=== PATIENT | female | born 1975 | race Caucasian/White ===

== ENCOUNTER 2017-10-19 04:48 | Emergency (ER) | payer OTHER ==
[~2017-10-19] VITALS: Ht 154.9 cm; Wt 61.7 kg
--- NOTE | 2017-10-19 05:53 | ED GI/GU/ABDOMINAL COMPLAINT ---
History of Present Illness General Chief Complaint: Abdominal Pain/Flank Pain Stated Complaint: PT C/C ABD/ VAG PAIN WOKE FROM SLEEP TONIGHT Source: patient, family, old records Exam Limitations: no limitations Vital Signs & Intake/Output Vital Signs & Intake/Output Vital Signs Date Time Temp Pulse Resp B/P B/P Pulse O2 O2 Flow FiO2 Mean Ox Delivery Rate 10/19 0922 98.0 58 18 110/74 99 Room Air Room Air 10/19 0750 97.6 10/19 0650 97.6 70 18 116/70 100 Room Air 10/19 0500 98.3 71 18 118/85 98 Room Air Reconcile Medications No Known Home Medications Triage Note: SEE NURSES NOTES Triage Nurses Notes Reviewed? yes LMP (ages 10-50): date ([id number]) ? n Is pt currently ? No Onset: Just prior to arrival Duration: minute(s):, constant, continues in ED Timing: single episode today Quality/Severity: sharpness, severe Location: suprapubic Radiation: back Activities at Onset: sleep Prior Abdominal Problems: none Past Sexual History: Unobtainable at this time Modifying Factors: Improves With: palpation. Worsens With: urinating. Associated Symptoms: abdominal pain, dysuria HPI: Prior to admission patient awoke with severe constant sharp Low back pain especially on the right radiating to the suprapubic area associated with nausea dysuria frequency. She denies fever chills vomiting diarrhea chest pain cough shortness of breath headache rash bleeding. (Alberto Mendez MD) Allergies Coded Allergies: meperidine (Intermediate, VOMITING 10/19/17) (Raphael Medina DO) Past History Travel History Traveled to [place] past 21 day No Medical History Any Pertinent Medical History? see below for history Renal: nephrolithiasis Surgical History Surgical History: Psychosocial History What is your primary language Bulgarian Tobacco Use: Current Daily Use Daily Tobacco Use Amount/Type: =< 4 Cigarettes daily ETOH Use: occasional use Illicit Drug Use: denies illicit drug use Family History Hx Contributory? No (Alberto Mendez MD) Review of Systems Review of Systems Constitutional: Reports: no symptoms. EENTM: Reports: no symptoms. Respiratory: Reports: no symptoms. Cardiovascular: Reports: no symptoms. GI: Reports: see HPI, abdominal pain, nausea. Genitourinary: Reports: see HPI, dysuria, frequency. Musculoskeletal: Reports: no symptoms. Skin: Reports: no symptoms. Neurological/Psychological: Reports: no symptoms. Hematologic/Endocrine: Reports: no symptoms. Immunologic/Allergic: Reports: no symptoms. All Other Systems: Reviewed and Negative (Alberto Mendez MD) Physical Exam Physical Exam General Appearance: well developed/nourished, alert, awake, anxious, moderate distress, thin Head: atraumatic, normal appearance Eyes: Bilateral: normal appearance, PERRL, EOMI, normal inspection. Ears, Nose, Throat, Mouth: hearing grossly normal, moist mucous membrane Neck: normal inspection, supple, full range of motion, normal alignment, no midline tenderness Respiratory: normal breath sounds, chest non-tender, no respiratory distress, quiet respiration, lungs clear Cardiovascular: regular rate/rhythm, normal peripheral pulses, norml femoral pulses equa Peripheral Pulses: 4+ carotid (R), 4+ carotid (L) Gastrointestinal: normal bowel sounds, soft, non-tender, no organomegaly Back: normal inspection, normal range of motion, no vertebral tenderness Extremities: normal range of motion, no ligament instability Neurologic/Psych: no motor/sensory deficits, awake, alert, oriented x 3, normal gait, normal mood/affect, inclusion special educator II-XII nml as tested Skin: intact, normal color, warm/dry Core Measures ACS in differential dx? No Sepsis Present: No Sepsis Focused Exam Completed? No (Alberto Mendez MD) Progress Differential Diagnosis: biliary colic, diverticulitis, gastritis, kidney stone, UTI/pyelo Plan of Care: Orders Procedure Date/time Status Add-on Test (ER Only) 10/19 0616 Active URINALYSIS 10/19 0540 Complete LIPASE 10/19 0540 Complete HUMAN BETA HCG SCREEN 10/19 0540 Complete COMPREHENSIVE METABOLIC PANEL 10/19 0540 Complete CBC WITHOUT DIFFERENTIAL 10/19 0540 Complete Current Medications Sig/Marti Start time Last Medication Dose Stop Time Status Admin Ceftriaxone Sodium 1,000 MG ONCE ONE 10/19 0930 CAN (Rocephin) 10/19 0931 Ondansetron HCl 4 MG ONCE ONE 10/19 0645 CAN (Zofran) 10/19 0646 Laboratory Tests 10/19/17 0545: Anion Gap 11, Estimated GFR > 60, BUN/Creatinine Ratio 18.8, Glucose 98, Calcium 9.3, Total Bilirubin 0.9, AST 16, ALT 23, Alkaline Phosphatase 67, Total Protein 6.7, Albumin 4.0, Globulin 2.7, Albumin/Globulin Ratio 1.5, Lipase 112, Total Beta HCG NEGATIVE, CBC w Diff NO MAN DIFF REQ, RBC 4.04 L, MCV 97.6, MCH 33.2 H, MCHC 34.0, RDW 12.9, MPV 8.2, Gran % 75.6 H, Lymphocytes % 18.2 L, Monocytes % 4.3, Eosinophils % 1.5, Basophils % 0.4, Absolute Granulocytes 8.8 H, Absolute Lymphocytes 2.1, Absolute Monocytes 0.5, Absolute Eosinophils 0.2, Absolute Basophils 0 10/19/17 0540: Urinalysis PACKD H, Urine Color YEL, Urine Clarity TURBD H, Urine pH 6.0, Ur Specific [place] >= 1.030, Urine Protein TRACE H, Urine Ketones NEG, Urine Nitrite NEG, Urine Bilirubin NEG, Urine Urobilinogen 0.2, Ur Leukocyte Esterase NEG, Ur Microscopic SEDIMENT EXAMINED, Urine Bacteria MANY H, Urine Hemoglobin MOD H, Urine Glucose NEG Diagnostic Imaging: Viewed by Me: CT Scan. Discussed w/RAD: CT Scan. Radiology Impression: Right grade 3 hydronephrosis secondary to a 4 mm obstructive UVJ calculus. Stable left grade 2 hydronephrosis without demonstrable nephrolithiasis. Sigmoid diverticulosis without evidence of diverticulitis. Initial ED EKG: none Hand-Off Endorsed To: Raphael Medina DO Endorsed Time: 0700 Pending: consult (Urology) (Vanessa BLACKWOOD,Alberto) Comments: Dr. Medina attending addendum at 10:40 AM: I assumed care while awaiting reassessment from Dr. Perez from urology. He did evaluate the patient at bedside and discussed her options for this 4 mm stone. I controlled the patient 's pain further with liquid hydrocodone/acetaminophen since the patient cannot take pills. We gave her two dosages of this medication with good improvement. I reassessment she was feeling better and wished to be discharged for an outpatient trial. I discussed this with Dr. Perez and he agreed. We offered Flomax, but she states that she truly cannot take oral tablets and thus she declined. Discharged home in stable condition. (Raphael Medina DO) Departure Departure Condition: Stable Clinical Impression Primary Impression: Obstructive uropathy Secondary Impressions: Renal colic on right side, UTI (urinary tract infection) Departure Forms: Customer Survey General Discharge Information (Vanessa BLACKWOOD,Alberto) Departure Time of Disposition: 1046 Disposition: HOME OR SELF CARE Referrals: John Perez MD Additional Instructions: Please take the hydrocodone/acetaminophen liquid for breakthrough pain, and naproxen (Aleve) or ibuprofen for routine pain. Use the ondansetron (Zofran) that we prescribed for your nausea. Make an appointment to follow-up with Dr. Perez from urology for further assessment and recommendations. As always, return here to the emergency department for reassessment if you cannot control your symptoms at home adequately, or if you develop a fever. Prescriptions: Current Visit Scripts Hydrocodone/Acetaminophen (Hycet 7.5 MG-325 MG/15 Ml Soln) 15 ML PO Q6 PRN BREAKTHROUGH PAIN #200 ML Ondansetron (Zofran Odt) 1 TAB SL Q6 PRN NAUSEA/VOMITING #15 TAB (Raphael Medina DO)
[2017-10-19 06:01] LABS: ABSOLUTE BASOPHIL COUNT 0 /CUMM (0.0-0.2); ABSOLUTE EOSINOPHIL COUNT 0.2 /CUMM (0.0-0.7); ABSOLUTE GRANULOCYTE CT 8.8 /CUMM (1.4-6.5); ABSOLUTE LYMPH COUNT 2.1 /CUMM (1.2-3.4); ABSOLUTE MONOCYTE COUNT 0.5 /CUMM (0.10-0.60); BASOPHIL % 0.4 % (0.0-2.0); EOSINOPHIL % 1.5 % (0-5); HEMATOCRIT 39.4 % (37-47); MEAN CORPUSCULAR HGB 33.2 PG (27.0-31.0); MEAN CORPUSCULAR VOLUME 97.6 FL (81.0-99.0); MEAN PLATELET VOLUME 8.2 FL (7.4-10.4); PLATELET COUNT 233 /CUMM (130-400); RBC DISTRIBUTION WIDTH 12.9 % (11.5-14.5); RED BLOOD CELL CT 4.04 /CUMM (4.20-5.40); WHITE BLOOD CELL COUNT 11.6 /CUMM (4.8-10.8)
[2017-10-19 06:02] LABS: GRANULOCYTE % 75.6 % (42.2-75.2)
--- NOTE | 2017-10-19 06:42 | CT SCAN REPORT ---
EXAMINATION: CT ABDOMEN AND PELVIS WITHOUT CONTRAST CLINICAL INFORMATION: Lower back pain. Dysuria. COMPARISON: September 14, 2013. TECHNIQUE: Contiguous axial thin section helical images of the abdomen and pelvis were performed without oral or IV contrast. The data set was reformatted in the coronal and sagittal planes and reviewed on an independent workstation. DLP: 268 mGy-cm. FINDINGS: The visualized lung bases are clear. The visualized portions of the heart are unremarkable. The liver is of normal size and attenuation without focal lesions nor intrahepatic biliary ductal dilation. A normal gallbladder is identified. There is no wall thickening or discernible pericholecystic fluid. The spleen, pancreas, adrenal glands are unremarkable. Both kidneys are of normal size and attenuation without demonstrable nephrolithiasis. There is right grade 3 hydroureteronephrosis secondary to a 4 mm obstructive UVJ calculus. There is left grade 2 hydronephrosis without demonstrable nephrolithiasis nor ureteral calculi. There is no abdominal free fluid. There is neither mesenteric nor retroperitoneal lymphadenopathy. There is extensive sigmoid diverticulosis without evidence of diverticulitis. Otherwise, unremarkable unopacified loops of small and large bowel are identified. There is no pelvic free fluid. The urinary bladder is unremarkable. There is neither pelvic nor inguinal lymphadenopathy. Bone windows: Neither sclerotic nor lytic bone lesions are identified. IMPRESSION: Right grade 3 hydronephrosis secondary to a 4 mm obstructive UVJ calculus. Stable left grade 2 hydronephrosis without demonstrable nephrolithiasis. Sigmoid diverticulosis without evidence of diverticulitis.
--- NOTE | 2017-10-19 07:30 | Cons- Urology ---
General Information and HPI Consulting Request Date of Consult: 10/19/17 Requested By: MD Keila, [facility] Reason for Consult: right colic due to UVJ stone Source of Information: patient, old records Exam Limitations: no limitations Allergies/Medications Allergies: Coded Allergies: meperidine (Intermediate, VOMITING 10/19/17) Home Med List: No Known Home Medications Current Medications: Current Medications Sig/Marti Start time Last Medication Dose Route Stop Time Status Admin Acetaminophen 1,000 MG ONCE ONE 10/19 629 DC 10/19 IV 10/19 0631 0641 Acetaminophen 0 .STK-MED ONE 10/19 629 DC IV Ceftriaxone Sodium 0 .STK-MED ONE 10/19 628 DC .ROUTE Ceftriaxone Sodium 1,000 MG ONCE ONE 10/19 0615 DC 10/19 IV 10/19 0616 0641 Ketorolac 0 .STK-MED ONE 10/19 0557 DC Tromethamine .ROUTE Ketorolac 30 MG ONCE ONE 10/19 0545 DC 10/19 Tromethamine IV 10/19 0546 0604 Ondansetron HCl 4 MG ONCE ONE 10/19 0700 DC 10/19 IV 10/19 0701 0657 Ondansetron HCl 4 MG ONCE ONE 10/19 0645 CANr IM 10/19 0646 Ondansetron HCl 0 .STK-MED ONE 10/19 0643 DC .ROUTE Phenazopyridine HCl 200 MG ONCE ONE 10/19 629 DC 10/19 PO 10/19 0631 0641 Phenazopyridine HCl 0 .STK-MED ONE 10/19 0629 DC PO Sodium Chloride 1,000 ML BOLUS ONE 10/19 0700 AC 10/19 IV 10/19 0759 0657 Sodium Chloride 1,000 ML BOLUS ONE 10/19 0545 DC 10/19 IV 10/19 0644 0549 Past History Medical History Renal: nephrolithiasis Surgical History Pertinent Surgical History: Psychosocial History ETOH Use: occasional use Illicit Drug Use: denies illicit drug use Exam & Diagnostic Data Vital Signs and I&O Vital Signs Date Time Temp Pulse Resp B/P B/P Pulse O2 O2 Flow FiO2 Mean Ox Delivery Rate 10/19 0650 97.6 70 18 116/70 100 Room Air 10/19 0500 98.3 71 18 118/85 98 Room Air Intake & Output 10/19 0800 10/19 0000 10/18 1600 10/18 0800 10/18 0000 10/17 1600 Intake Total 1100 Output Total 20 Balance 1080 Intake, IV 1100 Output, Urine 20 Patient 136 lb Weight Weight Reported by Patient Measurement Method Last 24 Hours of Labs: Laboratory Tests 10/19 10/19 0545 0540 Chemistry Sodium (137 - 145 mmol/L) 142 Potassium (3.5 - 5.1 mmol/L) 4.5 Chloride (98 - 107 mmol/L) 107 Carbon Dioxide (22 - 30 mmol/L) 24 Anion Gap (5 - 16) 11 BUN (7 - 17 mg/dL) 15 Creatinine (0.5 - 1.0 mg/dL) 0.8 Estimated GFR (>60 ml/min) > 60 BUN/Creatinine Ratio (7 - 25 %) 18.8 Glucose (65 - 99 mg/dL) 98 Calcium (8.4 - 10.2 mg/dL) 9.3 Total Bilirubin (0.2 - 1.3 mg/dL) 0.9 AST (14 - 36 U/L) 16 ALT (9 - 52 U/L) 23 Alkaline Phosphatase (<127 U/L) 67 Total Protein (6.3 - 8.2 g/dL) 6.7 Albumin (3.5 - 5.0 g/dL) 4.0 Globulin (1.9 - 4.2 gm/dL) 2.7 Albumin/Globulin Ratio (1.1 - 2.2 %) 1.5 Lipase (23 - 300 U/L) 112 Total Beta HCG (NEGATIVE) NEGATIVE Hematology CBC w Diff NO MAN DIFF REQ WBC (4.8 - 10.8 /CUMM) 11.6 H RBC (4.20 - 5.40 /CUMM) 4.04 L Hgb (12.0 - 16.0 G/DL) 13.4 Hct (37 - 47 %) 39.4 MCV (81.0 - 99.0 FL) 97.6 MCH (27.0 - 31.0 PG) 33.2 H MCHC (33.0 - 37.0 G/DL) 34.0 RDW (11.5 - 14.5 %) 12.9 Plt Count (130 - 400 /CUMM) 233 MPV (7.4 - 10.4 FL) 8.2 Gran % (42.2 - 75.2 %) 75.6 H Lymphocytes % (20.5 - 51.1 %) 18.2 L Monocytes % (1.7 - 9.3 %) 4.3 Eosinophils % (0 - 5 %) 1.5 Basophils % (0.0 - 2.0 %) 0.4 Absolute Granulocytes (1.4 - 6.5 /CUMM) 8.8 H Absolute Lymphocytes (1.2 - 3.4 /CUMM) 2.1 Absolute Monocytes (0.10 - 0.60 /CUMM) 0.5 Absolute Eosinophils (0.0 - 0.7 /CUMM) 0.2 Absolute Basophils (0.0 - 0.2 /CUMM) 0 Urines Urinalysis PACKD H Urine Color (YEL,AMB,STR) YEL Urine Clarity (CLEAR) TURBD H Urine pH (5.0 - 8.0) 6.0 Ur Specific [place] (1.001 - 1.035) >= 1.030 Urine Protein (NEG,<30 MG/DL) TRACE H Urine Ketones (NEG) NEG Urine Nitrite (NEG) NEG Urine Bilirubin (NEG) NEG Urine Urobilinogen (0.1 - 1.0 EU/dl) 0.2 Ur Leukocyte Esterase (NEG) NEG Ur Microscopic SEDIMENT EXAMINED Urine Bacteria (NEG/NONE) MANY H Urine Hemoglobin (NEG) MOD H Urine Glucose (N MG/DL) NEG Imaging Results: PATIENT: ELVIA CHRISTIANSON PRESENT AGE: 41 PATIENT ACCOUNT NO: [id number] : 77 LOCATION: [facility] ORDERING PHYSICIAN: Alberto Mendez MD SERVICE DATE: 10/19/17 EXAM TYPE: CAT - CT ABD & PELVIS W/O IV CONTRAS EXAMINATION: CT ABDOMEN AND PELVIS WITHOUT CONTRAST CLINICAL INFORMATION: Lower back pain. Dysuria. COMPARISON: September 14, 2013. TECHNIQUE: Contiguous axial thin section helical images of the abdomen and pelvis were performed without oral or IV contrast. The data set was reformatted in the coronal and sagittal planes and reviewed on an independent workstation. DLP: 268 mGy-cm. FINDINGS: The visualized lung bases are clear. The visualized portions of the heart are unremarkable. The liver is of normal size and attenuation without focal lesions nor intrahepatic biliary ductal dilation. A normal gallbladder is identified. There is no wall thickening or discernible pericholecystic fluid. The spleen, pancreas, adrenal glands are unremarkable. Both kidneys are of normal size and attenuation without demonstrable nephrolithiasis. There is right grade 3 hydroureteronephrosis secondary to a 4 mm obstructive UVJ calculus. There is left grade 2 hydronephrosis without demonstrable nephrolithiasis nor ureteral calculi. There is no abdominal free fluid. There is neither mesenteric nor retroperitoneal lymphadenopathy. There is extensive sigmoid diverticulosis without evidence of diverticulitis. Otherwise, unremarkable unopacified loops of small and large bowel are identified. There is no pelvic free fluid. The urinary bladder is unremarkable. There is neither pelvic nor inguinal lymphadenopathy. Bone windows: Neither sclerotic nor lytic bone lesions are identified. IMPRESSION: Right grade 3 hydronephrosis secondary to a 4 mm obstructive UVJ calculus. Stable left grade 2 hydronephrosis without demonstrable nephrolithiasis. Sigmoid diverticulosis without evidence of diverticulitis. Assessment/Plan Assessment/Plan RIght hydro and severe colic due to UVJ stone. IVF if fails, will need stent. Copies To: John Perez MD Consult Acknowledgment - Thank you for your consult request. Attending MD Review Statement Attending Statement Attending MD Statement: examined this patient, discuss w/resident/PA/EXERCISE MANAGER Attending Assessment/Plan: IVF and pain meds: flomax 0,4mg/HS x 1 week: may need stent
[2017-10-19 09:22] VITALS: BP 110/74
[2017-10-19] MEDS ORDERED: HYCET 7.5 MG-3473 ML PO (10:54)
[2017-10-19] MEDS ORDERED: ZOFRAN ODT4 M1 SL (10:54)
== END 2017-10-19 11:14 ==
LOC: ERH 04:48
PROVIDERS: Emergency Medicine
DX: N13.9 Obstructive and reflux uropathy, unspecified (principal); N23 Unspecified renal colic; N39.0 Urinary tract infection, site not specified
CPT/HCPCS: 74176; 81001; 96361; 96374; 96375; 99291; J0131; J0696; J1885; J2405

== ENCOUNTER → 2017-10-25 | Day surgery (SDC) | payer OTHER ==
[~2017-10-25] VITALS: Ht 154.9 cm; Wt 62.1 kg
[~2017-10-25] MED LIST: HYCET 7.5 MG-3473 ML PO; SULFAMETHOXAZO473 ML PO; ZOFRAN ODT4 M1 SL
--- NOTE | 2017-10-29 15:20 | Operative Report ---
Operative/Inv Procedure Report Surgery Date: 10/25/17 Name of Procedure: cystoscopy: bilateral retrograde pyelogram, fluoroscopy: right flexible ureteroscopy with laser standby Pre-Operative Diagnosis: hematuria: right colic Post-Operative Diagnosis: same Estimated Blood Loss: scant Surgeon/Dessert Cup Machine Feeder: John Perez MD Anesthesia: laryngeal mask airway Drains: none Complications: none Operative/Procedure Note Note: Patient was taken to the operating room and placed on the OR table in supine position. Timeout was performed, with the patient awake, in order to confirm correct identity, procedure, laterality, antibiotics, anesthesia, and other pertinent saran-operative information. After adequate anesthesia and antibiotics , the patient was then placed in lithotomy stirrups, draped and prepped in the usual surgical fashion. A 22 Vietnamese cystoscope sheath with 30 angle lens was inserted without difficulty. Upon entering the bladder, the bladder was noted to be free of tumor, and free of stone. Using a ureteral open-ended stent, starting with the left ureter, a retrograde pyelograms was perfomed, with fluoroscopy, revealing no filling defects, with mild left hydronephrosos. The left side was noted to have quick and complete drainage of the contrast material, after the removal of the ureter open-ended stent. The same retrograde procedure was performed on the right side, again revealing no filling deffect, and brisk efflux of contrast material. As the pt has been c /o severe right renal colic, and demand to proceed with ureteroscopy diagnostic/ treatment, the plan for right ureterscopy proceeded. Holmium/YAG laser was on standby and turned on. The right orifice was intubated with a 0.035 gluide wire and advanced to the right renal pelvis without difficulty. Using the gluide wire, and fluoroscope, the flexible uretersocope was placed over the gluide wire and advanced to the right renal pelvis with fluoroscopic guidance. Thorough calycoscopy and pyeloscopy confirms NO stone, and NO tumor in the renal calyxes, nor renal pelvis. At this point, the ureteroscope was then gently retracted from the left renal pelvis without difficulty, and no other stone, nor any tumor , was visualized along the left ureter with direct visualization. The bladder was then drained. All sponge, needle, and instrument count, were correct at the end of the case. the laser was turned off. The patient tolerated the procedure well, was then taken to the recovery room in satisfactory condition. She is discharged home with antibiotics and pain meds. Findings: BILATERALLY:no tumor, no stone, brisk efflux of contrast Discharge Disposition: PACU CC: John Perez MD
== END ==
LOC: STS 07:00
DX: R31.9 Hematuria, unspecified (principal); N13.30 Unspecified hydronephrosis; R10.84 Generalized abdominal pain; K21.9 Gastro-esophageal reflux disease without esophagitis; K58.9 Irritable bowel syndrome, unspecified; F17.210 Nicotine dependence, cigarettes, uncomplicated
CPT/HCPCS: J0131; J1885; J2250